=== PATIENT | male | born 1940 | race Caucasian/White ===

== ENCOUNTER → 2016-05-29 | Outpatient (REF) | payer MEDICARE, OTHER | LOC: LAB 10:13 | PROVIDERS: ATTEND Family Medicine | DX: E11.9 Type 2 diabetes mellitus without complications (principal) | CPT/HCPCS: 83036 ==

== ENCOUNTER → 2016-08-26 | Outpatient (REF) | payer MEDICARE, OTHER ==
[~2016-08-26] MED LIST: ASPI-345 PO; LIGAPLEX PO; LISI5TAB14 PO; LORA10CA PO; METF1000 PO; SMV20T PO
== END ==
LOC: LAB 09:39
PROVIDERS: ATTEND Family Medicine
DX: E11.9 Type 2 diabetes mellitus without complications (principal); E78.1 Pure hyperglyceridemia
CPT/HCPCS: 80061; 83036